=== PATIENT | male | born 1980 | race Hispanic/Latino ===

== ENCOUNTER 2018-03-18 10:45 | Emergency (ER) | payer SELFPAY ==
[2018-03-18] MEDS ORDERED: Lidocaine 1% PF 5 ML VIAL ONE (10:52)
--- NOTE | 2018-03-18 11:34 | RAD ---
3 VIEWS LEFT HAND: Date: 03/18/18 COMPARISON: None. HISTORY: injury, trauma, pain. FINDINGS: There is a prominent soft tissue injury involving the distal aspect of the left thumb. There is an as sociated obliquely oriented displaced and comminuted fracture involving the distal aspect of the firs t distal phalanx. The nail bed appears involved with this injury. No intraarticular extension or disl ocation. IMPRESSION: Comminuted and displaced fracture involving the distal aspect of the first distal phalanx with associ ated soft tissue injury. POS: YO
[2018-03-18] MEDS ORDERED: Adacel (T-DAP) 0.5 ML VIAL ONE (12:29)
[2018-03-18] MEDS ORDERED: CEFAZOLIN 1 GM VIAL ONE (12:29)
[2018-03-18] MEDS ORDERED: Sterile Water 100 ML ONE (12:36)
== END 2018-03-18 12:50 | disposition home or self-care (01) ==
LOC: BURERS 10:45
DX: S62.522B Displaced fracture of distal phalanx of left thumb, initial encounter for open fracture (principal); S61.012A Laceration without foreign body of left thumb without damage to nail, initial encounter; Z23 Encounter for immunization; W26.8XXA Contact with other sharp object(s), not elsewhere classified, initial encounter; Y92.69 Other specified industrial and construction area as the place of occurrence of the external cause
CPT/HCPCS: 12001; 90471; 90715; 96372; J0690; J2001